=== PATIENT | female | born 1950 | race Caucasian/White ===

== ENCOUNTER → 2018-08-12 | Outpatient (REF) | payer MEDICARE, BC ==
[~2018-08-12] MED LIST: AMLODIPINE BESYL5 MG PO; ASPIRIN81 MG PO; ATENOLOL25 MG PO; BAYER ASA325 MG PO; GLIPIZIDE10 M2 PO; JANUVIA50 MG PO; LEVOTHYROXIN25 MC1 PO; LISINOPRIL40 MG PO; PIOGLITAZONE HC15 MG PO; PRAVASTATIN SOD40 MG PO
[2018-08-12 10:25] LABS: HEMATOCRIT 38.5 % (37.0-47.0); HEMOGLOBIN 11.8 g/dl (12.0-16.0); IMMATURE GRANULOCYTES 0.3 % (0.0-5.0); MEAN CELL VOLUME 92.8 fL CALC (80.0-100.0); MEAN CORPUSCULAR HGB 28.4 pG CALC (26.0-32.0); MEAN CORPUSCULAR HGB CONC 30.6 g/L CALC (32.0-36.0); NEUT# 3.75 thou/uL (2.00-7.15); RED BLOOD COUNT 4.15 mill/uL (4.20-5.60); RED CELL DISTRI WIDTH 12.2 % (11.5-15.5)
[2018-08-12 12:09] LABS: CREATININE 1.1 mg/dL (0.5-1.0); POTASSIUM 4.7 mmol/l (3.5-5.1)
[2018-08-12 12:51] LABS: TSH, 3RD GENERATION 2.15 uIU/mL (0.47 - 4.68)
== END | disposition home or self-care (01) ==
LOC: LAB 09:38
PROVIDERS: ATTEND Nurse Practitioner Family
DX: E03.4 Atrophy of thyroid (acquired) (principal); E03.9 Hypothyroidism, unspecified; E11.29 Type 2 diabetes mellitus with other diabetic kidney complication; E55.9 Vitamin D deficiency, unspecified; E78.49 Other hyperlipidemia; N18.3 Chronic kidney disease, stage 3 (moderate)

== ENCOUNTER 2022-05-25 20:45 | Emergency (ER) | payer MEDICARE, BC ==
[2022-05-25] VITALS (10 sets, daily range): BP systolic 124–162; BP diastolic 40–115
[~2022-05-25] VITALS: Ht 162.6 cm; Wt 92.7 kg
[2022-05-25] MEDS ORDERED: JANUVIA50 MG PO (21:17)
[2022-05-26 00:38] VITALS: BP 159/61
== END 2022-05-26 00:46 | disposition short-term general hospital (02) ==
LOC: ED 20:45
DX: S72.002A Fracture of unspecified part of neck of left femur, initial encounter for closed fracture (principal); I10 Essential (primary) hypertension; E11.9 Type 2 diabetes mellitus without complications; W01.0XXA Fall on same level from slipping, tripping and stumbling without subsequent striking against object, initial encounter; Y92.009 Unspecified place in unspecified non-institutional (private) residence as the place of occurrence of the external cause; Z79.84 Long term (current) use of oral hypoglycemic drugs

== ENCOUNTER 2022-12-29 20:58 | Emergency (ER) | payer MEDICARE, BC ==
[~2022-12-29] VITALS: Ht 162.6 cm; Wt 92.5 kg
[2022-12-29 21:03] VITALS: BP 198/99
[2022-12-29 22:25] VITALS: BP 200/100
[2022-12-29 23:32] VITALS: BP 206/112
[2022-12-29 23:46] VITALS: BP 209/80
[2022-12-29] MEDS ORDERED: VOLTAREN - GENE75 MG PO (23:59)
[2022-12-30 00:01] VITALS: BP 201/102
[2022-12-30 00:06] VITALS: BP 203/98
[2022-12-31] MEDS ORDERED: CIPROFLOXACIN250 MG PO (11:02)
[2022-12-31] MEDS ORDERED: PREDNISONE20 MG PO (11:02)
[2022-12-31] MEDS ORDERED: PERCOCET 5/321 COMBO PO (11:04)
== END 2022-12-30 00:34 | disposition home or self-care (01) ==
LOC: ED 20:58
DX: S76.012A Strain of muscle, fascia and tendon of left hip, initial encounter (principal); I10 Essential (primary) hypertension; E11.9 Type 2 diabetes mellitus without complications; Z79.84 Long term (current) use of oral hypoglycemic drugs; X58.XXXA Exposure to other specified factors, initial encounter

== ENCOUNTER 2022-12-31 10:33 | Observation (INO) | payer MEDICARE, BC ==
[~2022-12-31] VITALS: Ht 162.6 cm; Wt 124.0 kg
[2022-12-31] VITALS (17 sets, daily range): BP systolic 120–208; BP diastolic 76–112
[~2022-12-31 10:33] MED LIST changes: +VOLTAREN - GENE75 MG PO
[2022-12-31] MEDS ORDERED: CIPROFLOXACIN250 MG PO (11:02)
[2022-12-31] MEDS ORDERED: PREDNISONE20 MG PO (11:02)
[2022-12-31] MEDS ORDERED: PERCOCET 5/321 COMBO PO (11:04)
[2022-12-31 11:06] LABS: EOS% 0.2 % (0-8); HEMATOCRIT 37.1 % (37.0-47.0); HEMOGLOBIN 11.2 g/dl (12.0-16.0); IMMATURE GRANULOCYTES 0.5 % (0.0-5.0); LYMPH% 6.4 % (15-41); MEAN CELL VOLUME 86.9 fL CALC (80.0-100.0); MEAN CORPUSCULAR HGB 26.2 pG CALC (26.0-32.0); MEAN CORPUSCULAR HGB CONC 30.2 g/dL CAL (32.0-36.0); MONO% 4.8 % (2-13); NEUT# 7.48 thou/uL (2.00-7.15); NEUT% 88.1 % (42-76); RED BLOOD COUNT 4.27 mill/uL (4.20-5.60); RED CELL DISTRI WIDTH 14.6 % (11.5-15.5)
[2022-12-31 11:30] LABS: ALBUMIN 3.6 g/dL (3.2-5.0); BILIRUBIN, TOTAL 0.7 mg/dL (0.02-1.3); CREATININE 1.8 mg/dL (0.5-1.0); POTASSIUM 4.4 mmol/l (3.5-5.1); TOTAL PROTEIN 6.5 g/dL (6.3-8.2)
[2022-12-31 13:13] LABS: URINE COLOR YELLOW; URINE GLUCOSE - DIPSTICK 500 mg/dL (NEGATIVE); URINE KETONE TRACE mg/dL (NEGATIVE); URINE PH 5.5 (4.5-8.0); URINE PROTEIN - DIPSTICK >=300 mg/dL (NEG-TRACE); URINE SPECIFIC GRAVITY >=1.030; URINE UROBILINOGEN - DIPSTICK 0.2 E.U./dL (0.2)
[2022-12-31 13:14] LABS: URINE BLOOD DIPSTICK MODERATE (NEGATIVE); URINE LEUK ESTERASE NEGATIVE (NEGATIVE); URINE NITRITE - DIPSTICK NEGATIVE (Negative)
[2022-12-31 13:20] LABS: URINE EPITHELIAL CELLS MANY EPI/hpf (0-FEW)
[2022-12-31 13:21] LABS: URINE HYALINE CAST FEW lpf (NONE-RARE)
[2023-01-01] VITALS (15 sets, daily range): BP systolic 128–204; BP diastolic 60–142
[2023-01-01 06:34] LABS: CHOLESTEROL HDL RATIO 2.2 (<4.4 (CALC)); MAGNESIUM 2.3 mg/dL (1.6-2.3)
== END 2023-01-01 22:23 | disposition short-term general hospital (02) ==
LOC: ED 10:33 → ED-I 11:41 → ED 17:19 → ICU 17:20
PROVIDERS: Family Medicine; Internal Medicine; ADMIT Student in an Organized Health Care Education/Training Program; ATTEND Student in an Organized Health Care Education/Training Program
DX: I13.0 Hypertensive heart and chronic kidney disease with heart failure and stage 1 through stage 4 chronic kidney disease, or unspecified chronic kidney disease (principal); S72.052A Unspecified fracture of head of left femur, initial encounter for closed fracture; M97.02XA Periprosthetic fracture around internal prosthetic left hip joint, initial encounter; N17.9 Acute kidney failure, unspecified; I50.9 Heart failure, unspecified; E11.22 Type 2 diabetes mellitus with diabetic chronic kidney disease; N18.30 Chronic kidney disease, stage 3 unspecified; W19.XXXA Unspecified fall, initial encounter; T50.1X6A Underdosing of loop [high-ceiling] diuretics, initial encounter; Z74.01 Bed confinement status; Z95.0 Presence of cardiac pacemaker; Z91.128 Patient's intentional underdosing of medication regimen for other reason; Z96.642 Presence of left artificial hip joint; Z20.822 Contact with and (suspected) exposure to COVID-19
CPT/HCPCS: J1650

== ENCOUNTER 2024-05-10 08:49 | Emergency (ER) | payer MEDICARE, BC ==
[~2024-05-10] VITALS: Ht 162.6 cm; Wt 74.3 kg
[~2024-05-10 08:49] MED LIST changes: +CIPROFLOXACIN250 MG PO; +PERCOCET 5/321 COMBO PO; +PREDNISONE20 MG PO
[2024-05-10 09:03] VITALS: BP 195/66
[2024-05-10] MEDS ORDERED: LIDOcaine HCl 1% (Local Anesth.) 20 ML VIAL STI ONE (09:05)
[2024-05-10] MEDS ORDERED: CEPHALEXIN MONOHYDRATE 500 MG/CAP PO ONE (09:05)
[2024-05-10] MEDS ORDERED: Diph, Acellular Pertussis, Tet 0.5 ML/VIAL (Tdap) SDV IM ONE (09:05)
[2024-05-10 09:16] VITALS: BP 191/55
[2024-05-10 09:21] VITALS: BP 180/56
[2024-05-10 09:46] VITALS: BP 154/61
[2024-05-10] MEDS ORDERED: CEPHALEXIN500 M1 PO (10:28)
[2024-05-10 10:31] VITALS: BP 164/66
[2024-05-10 10:37] VITALS: BP 164/66
== END 2024-05-10 10:50 | disposition home or self-care (01) ==
LOC: ED 08:49
PROC: 0HQKXZZ Repair Right Lower Leg Skin, External Approach (ICD-10-PCS; principal; 2024-05-10)
DX: S81.811A Laceration without foreign body, right lower leg, initial encounter (principal); E11.9 Type 2 diabetes mellitus without complications; I10 Essential (primary) hypertension; V58.4XXA Person boarding or alighting a pick-up truck or van injured in noncollision transport accident, initial encounter; Z79.84 Long term (current) use of oral hypoglycemic drugs

== ENCOUNTER 2024-05-20 09:05 | Emergency (ER) | payer MEDICARE, BC ==
[~2024-05-20] VITALS: Ht 162.6 cm; Wt 72.5 kg
[~2024-05-20 09:05] MED LIST changes: +CEPHALEXIN500 M1 PO
[2024-05-20 09:18] VITALS: BP 185/69
[2024-05-20] MEDS ORDERED: CEPHALEXIN500 M1 PO (09:27)
== END 2024-05-20 09:42 | disposition home or self-care (01) ==
LOC: ED 09:05
DX: S81.811D Laceration without foreign body, right lower leg, subsequent encounter (principal); X58.XXXD Exposure to other specified factors, subsequent encounter; I10 Essential (primary) hypertension; E11.9 Type 2 diabetes mellitus without complications; Z79.84 Long term (current) use of oral hypoglycemic drugs